=== PATIENT | male | born 1975 | race Two or more races ===

== ENCOUNTER 2020-12-19 08:43 | Emergency (ER) | payer SELFPAY ==
[~2020-12-19] VITALS: Ht 170.2 cm; Wt 76.0 kg
[2020-12-19] MEDS ORDERED: LORazepam 2 MG/ML, 1ML ONE ×2 (08:49→10:06)
--- NOTE | 2020-12-19 08:50 | NUR ---
PT BIB EMS FOR SEIZURE LIKE ACTIVITY, WITNESSED. NO INJURY TO PT, SMALL ABRASION ON INSIDE CHEEK FROM BITE. PT STATES HE IS HEAVY DRINKER OF BEERS. PT TREMULOUS AND CONFUSED TO SITATUION, a&OX3. IV PER EMS. SEIZURE PADS IN PLACE.
--- NOTE | 2020-12-19 08:58 | NUR ---
BREAK RN: THIAMINE REQUESTED FROM PHARMACY.
[2020-12-19] MEDS ORDERED: LORazepam 2 MG/ML, 1ML IVPush PRN (09:00)
[2020-12-19] MEDS ORDERED: SODIUM CHLORIDE FLUSH 10ML SYR IVF ONE (09:00)
[2020-12-19] MEDS ORDERED: PLEASE ENTER ALLERGIES MC SCH (09:00)
[2020-12-19] MEDS ORDERED: THIAMINE 100 MG in SODIUM CHLORIDE 0.9% 50 ML IVPB ONE (09:00)
[2020-12-19] MEDS ORDERED: LORazepam 2 MG/ML, 1ML IV ONE (09:00)
[2020-12-19] MEDS ORDERED: SODIUM CHLORIDE 0.9% 1,000ML IVBOLUS ONE (09:00)
[2020-12-19 09:07] LABS: BASOPHILS % (AUTO) 1 % (0-1); EOSINOPHILS % (AUTO) 0 % (1-7); LYMPHOCYTES % (AUTO) 10 % (22-44); MEAN CORPUSCULAR HEMOGLOBIN 31.6 pg (27.5-34.5); MEAN CORPUSCULAR HGB CONC 34.1 g/dL (33.2-36.2); MEAN PLATELET VOLUME 10.2 fL (7.4-10.4); MONOCYTES % (AUTO) 8 % (2-9); NEUTROPHILS % (AUTO) 81 % (42-75); PLATELET COUNT 195 x10^3/uL (130-400); RED BLOOD COUNT 4.61 x10^6/uL (4.38-5.82); RED CELL DISTRIBUTION WIDTH 13.1 % (9.4-14.8)
[2020-12-19 09:17] LABS: ALANINE AMINOTRANSFERASE 74 U/L (12-78); ALBUMIN 4.4 g/dL (3.4-5.0); ANION GAP 18 mmol/L (5-15); CALCIUM 9.1 mg/dL (8.5-10.1); CHLORIDE 106 mmol/L (98-107); CREATININE 1.07 mg/dL (0.7-1.3)
[2020-12-19 09:19] LABS: ALKALINE PHOSPHATASE 126 U/L (45-117); BILIRUBIN,TOTAL 1.3 mg/dL (0.2-1.0)
[2020-12-19 09:27] LABS: MD SCAN
[2020-12-19 09:28] LABS: ACETONE, SERUM Negative (Negative)
--- NOTE | 2020-12-19 09:29 | NUR ---
PT BACK FROM IMAGING
[2020-12-19 10:16] VITALS: BP 138/90
--- NOTE | 2020-12-19 10:26 | NUR ---
PT TREMULOUS. MEDICATED W ATIVAN PER ORDERS.
[2020-12-19] MEDS ORDERED: BEER 12 OZ CAN PO ONE (11:00)
--- NOTE | 2020-12-19 11:00 | NUR ---
PT GIVEN BEER PER ORDERS. NO ISSUES SWALLOWING OR DRINKING
--- NOTE | 2020-12-19 11:23 | NUR ---
Patient given discharge instructions/AMA and they have confirmed that they understand the instructions. Patient ambulatory with steady gait.
== END 2020-12-19 11:45 | disposition home or self-care (01) ==
LOC: ED 11:25
DX: F10.239 Alcohol dependence with withdrawal, unspecified (principal); R00.0 Tachycardia, unspecified; R56.9 Unspecified convulsions
CPT/HCPCS: 36415; 70450; 80053; 80320; 82010; 83735; 85025; 93005; 96361; 96374; 96375; 96376; 99285; J2060; J3411; J7030; G0480